=== PATIENT | male | born 1995 ===

== ENCOUNTER 2017-07-24 20:58 | Emergency (ER) | payer SELFPAY ==
[2017-07-24 21:58] LABS: BASO # 0.1 K/uL (0.0-0.2); BASO % 0.5 % (0.0-2.0); EOS # 0.2 K/uL (0.0-0.7); EOS % 2.1 % (0.0-4.0); HEMOGLOBIN 14.3 g/dL (12.0-18.0); LYMPH # 2.5 K/uL (1.0-4.3); LYMPH % 25.4 % (20.0-40.0); MEAN CELL VOLUME 87.5 fl (80.0-94.0); MEAN CORPUSCULAR HEMOGLOBIN 28.8 pg (27.0-31.0); MEAN CORPUSCULAR HGB CONC 32.9 g/dL (33.0-37.0); MEAN PLATELET VOLUME 8.8 fl (7.2-11.7); MONO # 0.7 K/uL (0.0-0.8); MONO % 7.2 % (0.0-10.0); NEUT # 6.3 K/uL (1.8-7.0); NEUT % 64.8 % (50.0-75.0); RBC 4.95 Mil/uL (4.40-5.90); RED CELL DISTRIBUTION WIDTH 13.6 % (11.5-14.5); WHITE BLOOD COUNT 9.8 K/uL (4.8-10.8)
--- NOTE | 2017-07-24 21:58 | ED PDOC ---
HPI: Psych/Substance Abuse Time Seen by Provider: 07/24/17 21:13 Chief Complaint (Nursing): Psychiatric Evaluation Chief Complaint (Provider): Psychiatric Evaluation History Per: Patient History/Exam Limitations: no limitations Additional Complaint(s): 21 yo M, is here for psychiatric evaluation. He said that he was just angry at his family and punched the wall. He is currently homeless and was kicked out of group home. Otherwise: (-) hallucinations, (-) suicidal ideation, (-) homicidal ideation, (-) fever, (-)headache, (-) dyspnea, (-) vomiting. Past Medical History Reviewed: Historical Data, Nursing Documentation, Vital Signs Vital Signs: Last Vital Signs Temp 98.3 F 07/24/17 21:01 Pulse 75 07/24/17 21:01 Resp 16 07/24/17 21:01 BP 132/82 07/24/17 21:01 Pulse Ox 99 07/24/17 21:01 - Family History Family History: States: Unknown Family Hx - Allergies Allergies/Adverse Reactions: Allergies Allergy/AdvReac Type Severity Reaction Status Date / Time No Known Allergies Allergy Verified 07/24/17 21:01 Review of Systems ROS Statement: Except As Marked, All Systems Reviewed And Found Negative (As per HPI,otherwise negative) Psych: Positive for: Other (Psychiatric evalaution). Negative for: Suicidal ideation (or homicidal ideation) Physical Exam - Reviewed Nursing Documentation Reviewed: Yes Vital Signs Reviewed: Yes - Physical Exam Comments: GENERAL APPEARANCE: Patient is awake, alert, oriented x 3, in no acute distress. SKIN: Warm, dry; (-) cyanosis HEAD: (-) scalp swelling, (-) scalp tenderness. EYES: (-) conjunctival pallor, (-) scleral icterus, (-) nystagmus. ENMT: Mucous membranes moist. Airway patent: (-) stridor. NECK: (-) tenderness, (-) stiffness, (-) lymphadenopathy. CHEST AND RESPIRATORY: (-) rales, (-) rhonchi, (-) wheezes; breath sounds equal. ABDOMEN: Soft, (-) distention, (-) tenderness, (-) guarding. EXTREMITIES: (+) tenderness, ecchymosis and edema to the R 3rd MCP, (+) FROM, cap refill normal, distal sensation normal. NEURO AND PSYCH: Mental status as above. Affect: Calm and cooperative. tester semiconductor packages: Intact. Pupils equal and reactive; EOMI; (-) facial asymmetry; tongue and uvula midline. - Laboratory Results Result Diagrams: 07/24/17 21:50 07/24/17 21:50 - ECG O2 Sat by Pulse Oximetry: 99 (RA) Pulse Ox Interpretation: Normal Medical Decision Making Medical Decision Making: Time: 21:25 Initial Impression: Plan: Alcohol serum CMP Drug screen CBC w/ differential 1:1 Observation Urinalysis XR R hand Labs reviewed X-ray right hand: no fracture, no dislocation, as read by GAGANDEEP. Patient is medically cleared for crisis evaluation. Patient is seen and evaluated by crisis. Disposition still pending at this time. Case endorsed to GAGANDEEP Carlson at 0000 pending disposition as per psych. Scribe Attestation: Documented by Emerita Bustillo acting as a scribe for GAGANDEEP Tamez PA-C. Scribe Attestation: All medical record entries made by the Scribe were at my direction and personally dictated by me. I have reviewed the chart and agree that the record accurately reflects my personal performance of the history, physical exam, medical decision making, and the department course for this patient. I have also personally directed, reviewed, and agree with the discharge instructions and disposition. Disposition - Clinical Impression Clinical Impression: Hand contusion, Substance induced mood disorder - Patient ED Disposition Is Patient to be Admitted: Transfer of Care (Case endorsed to GAGANDEEP Carlson 0000 pending dispo from psych) Counseled Patient/Family Regarding: Studies Performed, Diagnosis - Disposition Disposition Time: 00:00 Condition: STABLE Forms: [employer] (Mexican) - PA / CYCLE REPAIRER / Resident Statement MD/DO has reviewed & agrees with the documentation as recorded.
[2017-07-24 22:07] LABS: ALB/GLOB RATIO 1.4 (1.0-2.1); ALBUMIN 4.4 g/dL (3.5-5.0); ALT/SGPT 34 U/L (21-72); AST/SGOT 22 U/L (17-59); BLOOD UREA NITROGEN 19 mg/dl (9-20); CALCIUM 9.6 mg/dL (8.4-10.2); GFR AFRICAN-AMERICAN > 60; GFR NON-AFRICAN AMERICAN > 60
[2017-07-25 00:08] LABS: SQUAMOUS EPITHIAL < 1 /hpf (0-5); URINE BILIRUBIN NEGATIVE (NEGATIVE); URINE BLOOD NEGATIVE (NEGATIVE); URINE CLARITY CLEAR (Clear); URINE COLOR YELLOW (YELLOW); URINE GLUCOSE (UA) NEG (Normal); URINE LEUKOCYTE ESTERASE NEG Leu/uL (Negative); URINE PROTEIN NEGATIVE (NEGATIVE); URINE UROBILINOGEN 0.2-1.0 mg/dL (0.2-1.0)
[2017-07-25 00:28] LABS: BARBITURATES, UR NEGATIVE (NEGATIVE); BENZODIAZEPINES, UR NEGATIVE (NEGATIVE); OPIATES, UR NEGATIVE (NEGATIVE); PHENCYCLIDINE, UR NEGATIVE (NEGATIVE)
[2017-07-25 00:49] VITALS: BP 115/56; PULSE 68; RESP 18; TEMP 98.2; O2SAT 98
--- NOTE | 2017-07-25 01:26 | ED PDOC ---
- Laboratory Results Result Diagrams: 07/24/17 21:50 07/24/17 21:50 - ECG O2 Sat by Pulse Oximetry: 98 - Progress ED Course And Treament: Case endorsed to radio script writer from [facility] pending crisis eval Patient evaluated by fast foods worker; does not meet criteria for admission at this time as per Dr. Mosqueda. Follow up outpatient. Return precautions given Disposition Counseled Patient/Family Regarding: Studies Performed, Diagnosis, Need For Followup - Clinical Impression Clinical Impression: Hand contusion, Adjustment disorder, Personality disorder, unspecified - POA Present On Arrival: None - Disposition Disposition: Routine/Home Disposition Time: 01:25 Condition: STABLE Instructions: Adjustment Disorder, Contusion (DC) Forms: [employer] (Icelandic)
--- NOTE | 2017-07-25 13:43 | RAD ---
PROCEDURE: Right Hand Radiographs. HISTORY: Pain. No history of recent/ related trauma provided COMPARISON: None. FINDINGS: BONES: Normal. No fracture. JOINTS: Normal. No osteoarthritic changes. SOFT TISSUES: Normal. OTHER FINDINGS: None. IMPRESSION: Normal right hand radiographs.
== END 2017-07-25 01:36 | disposition home or self-care (01) ==
LOC: H.ER 20:58
DX: S60.221A Contusion of right hand, initial encounter (principal); W22.8XXA Striking against or struck by other objects, initial encounter; Y92.89 Other specified places as the place of occurrence of the external cause; F43.20 Adjustment disorder, unspecified; F60.9 Personality disorder, unspecified; F19.94 Other psychoactive substance use, unspecified with psychoactive substance-induced mood disorder
CPT/HCPCS: 73130; 80053; 81003; 85025; 99283; G0480

== ENCOUNTER 2017-08-15 01:23 | Emergency (ER) | payer SELFPAY ==
[2017-08-15 01:49] VITALS: BMI 34.0
[2017-08-15 01:52] VITALS: BP 138/91; PULSE 75; RESP 18; TEMP 98.6; O2SAT 98
[2017-08-15 03:42] LABS: BASO # 0.1 K/uL (0.0-0.2); BASO % 0.6 % (0.0-2.0); EOS # 0.4 K/uL (0.0-0.7); EOS % 4.2 % (0.0-4.0); HEMOGLOBIN 13.3 g/dL (12.0-18.0); LYMPH # 2.7 K/uL (1.0-4.3); MEAN CELL VOLUME 86.2 fl (80.0-94.0); MEAN CORPUSCULAR HEMOGLOBIN 29.5 pg (27.0-31.0); MEAN CORPUSCULAR HGB CONC 34.2 g/dL (33.0-37.0); MEAN PLATELET VOLUME 8.3 fl (7.2-11.7); MONO # 0.6 K/uL (0.0-0.8); MONO % 6.8 % (0.0-10.0); NEUT # 5.7 K/uL (1.8-7.0); NEUT % 60.4 % (50.0-75.0); NRBC % 0.2 % (0.0-0.0); RBC 4.52 Mil/uL (4.40-5.90); RED CELL DISTRIBUTION WIDTH 13.5 % (11.5-14.5); WHITE BLOOD COUNT 9.5 K/uL (4.8-10.8)
[2017-08-15 03:50] LABS: BLOOD UREA NITROGEN 20 mg/dl (9-20); CALCIUM 9.1 mg/dL (8.4-10.2); GFR AFRICAN-AMERICAN > 60; GFR NON-AFRICAN AMERICAN > 60
[2017-08-15 04:03] LABS: ACETAMINOPHEN < 10.0 ug/ml (10.0-30.0); SALICYLATE < 1.0 mg/dl
--- NOTE | 2017-08-15 05:49 | ED PDOC ---
HPI: General Adult Time Seen by Provider: 08/15/17 01:45 Chief Complaint (Nursing): Psychiatric Evaluation Chief Complaint (Provider): Evaluation History Per: Patient History/Exam Limitations: no limitations Additional Complaint(s): 21 years old male presents to the ED for general evaluations. Patient is requesting to sleep and rest here in the ED. He offers no medical complaints. PMD: non provided Past Medical History Reviewed: Historical Data, Nursing Documentation, Vital Signs Vital Signs: Last Vital Signs Temp 98.6 F 08/15/17 01:49 Pulse 75 08/15/17 01:49 Resp 18 08/15/17 01:49 BP 138/91 H 08/15/17 01:49 Pulse Ox 98 08/15/17 06:41 - Medical History PMH: No Chronic Diseases Denies: Diabetes, Hepatitis, HIV, HTN, Seizures, Sexually Transmitted Disease - Surgical History Surgical History: No Surg Hx - Family History Family History: States: Unknown Family Hx - Social History Current smoker - smoking cessation education provided: No Alcohol: None Drugs: Denies - Allergies Allergies/Adverse Reactions: Allergies Allergy/AdvReac Type Severity Reaction Status Date / Time No Known Allergies Allergy Verified 07/24/17 21:01 Review of Systems ROS Statement: Except As Marked, All Systems Reviewed And Found Negative Physical Exam - Reviewed Nursing Documentation Reviewed: Yes - Physical Exam Appears: Positive for: Non-toxic, No Acute Distress Head Exam: Positive for: ATRAUMATIC, NORMOCEPHALIC Skin: Positive for: Normal Color, Warm, Dry Eye Exam: Positive for: Normal appearance, EOMI, PERRL ENT: Positive for: Normal ENT Inspection Neck: Positive for: Normal, Painless ROM, Supple Cardiovascular/Chest: Positive for: Regular Rate, Rhythm. Negative for: Murmur Respiratory: Positive for: Normal Breath Sounds. Negative for: Respiratory Distress Gastrointestinal/Abdominal: Positive for: Normal Exam, Soft. Negative for: Tenderness Back: Positive for: Normal Inspection. Negative for: L CVA Tenderness, R CVA Tenderness Extremity: Positive for: Normal ROM. Negative for: Tenderness Neurologic/Psych: Positive for: Other (Somnolent) - Laboratory Results Result Diagrams: 08/15/17 03:30 08/15/17 03:30 - ECG O2 Sat by Pulse Oximetry: 98 (RA) Pulse Ox Interpretation: Normal Medical Decision Making Medical Decision Making: Time: 230 Initial Plan: --EKG --Acetaminophen --Alcohol Serum --BMP --Drug Screen --Salicylate --CBC --Urinalysis 0548 --Crisis evaluation is ordered. pt is more awke and alert, with no focal deficits, no dizziness or signs of trauma. pt vitals stable throughout ER stay. 06 Patient is cleared by crisis evaluation and is diagnosed with homelessness by Dr. Mosqueda, [facility] psychiatrist. Scribe Attestation: Documented by Yola Kaur, acting as a scribe for Deysi Johnson MD. Provider Scribe Attestation: All medical record entries made by the Scribe were at my direction and personally dictated by me. I have reviewed the chart and agree that the record accurately reflects my personal performance of the history, physical exam, medical decision making, and the department course for this patient. I have also personally directed, reviewed, and agree with the discharge instructions and disposition. Disposition - Clinical Impression Clinical Impression: Homelessness - Patient ED Disposition Is Patient to be Admitted: No Counseled Patient/Family Regarding: Studies Performed, Diagnosis, Need For Followup - Disposition Referrals: [facility] [Outside] [facility] [Outside] Disposition: Routine/Home Disposition Time: 04:00 Condition: IMPROVED Additional Instructions: follow up with your primary doctor in 1-2 days return to the ED with any worsening or concerning symptoms Forms: [employer] (Georgian)
--- NOTE | 2017-08-18 12:15 | CARD ---
APPROVED REPORT EKG Measurement Heart [id number] <Conclusion> Sinus rhythm with marked sinus arrhythmia Otherwise normal ECG
== END 2017-08-15 06:52 | disposition home or self-care (01) ==
LOC: H.ER 01:23
DX: Z04.6 Encounter for general psychiatric examination, requested by authority (principal); Z59.0 Homelessness
CPT/HCPCS: 80048; 85025; 93005; 99282; G0480

== ENCOUNTER 2017-08-26 02:33 | Emergency (ER) | payer SELFPAY ==
[2017-08-26 02:38] VITALS: BMI 33.0
--- NOTE | 2017-08-26 04:17 | ED PDOC ---
HPI: Psych/Substance Abuse Time Seen by Provider: 08/26/17 02:38 Chief Complaint (Nursing): Alcohol Ingestion Chief Complaint (Provider): Alcohol Ingestion ED Caveat: Intoxicated History Per: Patient History/Exam Limitations: intoxication Additional Complaint(s): 21 years old male presents to the ED for public intoxication. Patient speaks to himself. PMD: Procedure,Nonphys Past Medical History Reviewed: Historical Data, Nursing Documentation, Vital Signs Vital Signs: Last Vital Signs Temp 98 F 08/26/17 02:37 Pulse 79 08/26/17 02:37 Resp 18 08/26/17 02:37 BP 126/90 08/26/17 02:37 Pulse Ox 98 08/26/17 02:37 - Medical History PMH: Denies: Diabetes, Hepatitis, HIV, HTN, Seizures, Sexually Transmitted Disease - Surgical History Surgical History: No Surg Hx - Family History Family History: States: Unknown Family Hx - Allergies Allergies/Adverse Reactions: Allergies Allergy/AdvReac Type Severity Reaction Status Date / Time No Known Allergies Allergy Verified 07/24/17 21:01 Review of Systems Review Of Systems: ROS cannot be obtained secondary to pt's inabilty to answer questions. Physical Exam - Reviewed Nursing Documentation Reviewed: Yes Vital Signs Reviewed: Yes - Physical Exam Neurologic/Psych: Positive for: Alert, Oriented (x [address]), Other ( appears internally occupied.) - ECG O2 Sat by Pulse Oximetry: 98 (RA) Pulse Ox Interpretation: Normal Medical Decision Making Medical Decision Making: Time: 030 Initial Impression: 21 years old intoxicated male. Initial Plan: --Alcohol Serum --Urine Drug Screen Provider suspects elicit substance abuse. Time: 616 Patient is sober, awake, alert, oriented x3 and has fluent speech. Patient is stable for discharge. Scribe Attestation: Documented by Yola Kaur, acting as a scribe for Garrett Rea MD. Provider Scribe Attestation: All medical record entries made by the Scribe were at my direction and personally dictated by me. I have reviewed the chart and agree that the record accurately reflects my personal performance of the history, physical exam, medical decision making, and the department course for this patient. I have also personally directed, reviewed, and agree with the discharge instructions and disposition. Disposition - Clinical Impression Clinical Impression: Alcohol intoxication - Disposition Disposition: Routine/Home Disposition Time: 06:17 Condition: STABLE Instructions: Alcohol Use - When Is Drinking a Problem? Forms: [employer] (Wolof)
[2017-08-26 06:32] VITALS: BP 124/79; PULSE 77; RESP 16; TEMP 97.9; O2SAT 97
== END 2017-08-26 06:32 | disposition home or self-care (01) ==
LOC: H.ER 02:33
DX: F10.129 Alcohol abuse with intoxication, unspecified (principal)
CPT/HCPCS: 99282; G0480

== ENCOUNTER 2017-08-30 00:52 | Emergency (ER) | payer SELFPAY ==
[2017-08-30 00:52] VITALS: BMI 33.0
[2017-08-30 02:33] VITALS: BP 114/75; PULSE 89; RESP 16; TEMP 98.1; O2SAT 100
--- NOTE | 2017-08-30 02:37 | ED PDOC ---
HPI: General Adult Time Seen by Provider: 08/30/17 02:15 Chief Complaint (Nursing): Medical Clearance Chief Complaint (Provider): none History Per: Patient History/Exam Limitations: no limitations Additional Complaint(s): 21 y/o male presents to ED for eval. Patient states he is tired because he is homeless and doesn't get much sleep. Patient states he was sleeping in waiting room until asked to leave by security so he decided to sign up for a "check up". Patient denies acute medical or psychiatric complaints. Past Medical History Reviewed: Historical Data, Nursing Documentation, Vital Signs Vital Signs: Last Vital Signs Temp 98.1 F 08/30/17 02:29 Pulse 89 08/30/17 02:29 Resp 16 08/30/17 02:29 BP 114/75 08/30/17 02:29 Pulse Ox 100 08/30/17 02:29 - Medical History PMH: No Chronic Diseases Denies: Diabetes, Hepatitis, HIV, HTN, Seizures, Sexually Transmitted Disease - Surgical History Surgical History: No Surg Hx - Family History Family History: States: Unknown Family Hx - Allergies Allergies/Adverse Reactions: Allergies Allergy/AdvReac Type Severity Reaction Status Date / Time No Known Allergies Allergy Verified 07/24/17 21:01 Review of Systems ROS Statement: Except As Marked, All Systems Reviewed And Found Negative Physical Exam - Reviewed Nursing Documentation Reviewed: Yes Vital Signs Reviewed: Yes - Physical Exam Appears: Positive for: Well, Non-toxic, No Acute Distress (sleeping in chair) Head Exam: Positive for: ATRAUMATIC, NORMAL INSPECTION, NORMOCEPHALIC Skin: Positive for: Normal Color Eye Exam: Positive for: Normal appearance ENT: Positive for: Normal ENT Inspection Cardiovascular/Chest: Positive for: Regular Rate, Rhythm Respiratory: Positive for: Normal Breath Sounds Gastrointestinal/Abdominal: Positive for: Normal Exam Back: Positive for: Normal Inspection Extremity: Positive for: Normal ROM Neurologic/Psych: Positive for: Alert, Oriented - ECG O2 Sat by Pulse Oximetry: 100 - Progress ED Course And Treament: Patient requires no further intervention in ED and is stable for discharge Disposition - Clinical Impression Clinical Impression: Normal exam - Patient ED Disposition Is Patient to be Admitted: No Counseled Patient/Family Regarding: Diagnosis, Need For Followup - Disposition Referrals: [facility] [Outside] Disposition: Routine/Home Disposition Time: 02:37 Condition: GOOD
== END 2017-08-30 02:45 | disposition home or self-care (01) ==
LOC: H.ER 00:52
DX: Z59.0 Homelessness (principal)

== ENCOUNTER 2017-08-31 02:26 | Emergency (ER) | payer SELFPAY ==
[2017-08-31 02:27] VITALS: BMI 33.0
[2017-08-31 02:53] VITALS: BP 116/72; PULSE 68; RESP 16; TEMP 97.5; O2SAT 97
--- NOTE | 2017-08-31 04:49 | ED PDOC ---
HPI: Psych/Substance Abuse Time Seen by Provider: 08/31/17 02:57 Chief Complaint (Nursing): Psychiatric Evaluation Chief Complaint (Provider): Psychiatric evaluation History Per: Patient Associated Symptoms: denies: Suicidal Thoughts, Suicidal Plan Additional Complaint(s): 21yo male, well known to ER for multiple visits with similar presentation, comes today for a psychiatric evaluation. Upon provider interview, patient noted to be rambling and unable/unwilling to provide a coherent HPI. Per triage note, patient reported homicidal ideation but denies suicidal ideation. PMD: None Past Medical History Reviewed: Historical Data, Nursing Documentation, Vital Signs Vital Signs: Last Vital Signs Temp 97.5 F L 08/31/17 02:50 Pulse 68 08/31/17 02:50 Resp 16 08/31/17 02:50 BP 116/72 08/31/17 02:50 Pulse Ox 97 08/31/17 02:50 - Medical History PMH: Denies: Diabetes, Hepatitis, HIV, HTN, Seizures, Sexually Transmitted Disease - Surgical History Surgical History: No Surg Hx - Family History Family History: States: Unknown Family Hx - Allergies Allergies/Adverse Reactions: Allergies Allergy/AdvReac Type Severity Reaction Status Date / Time No Known Allergies Allergy Verified 07/24/17 21:01 Review of Systems ROS Statement: Except As Marked, All Systems Reviewed And Found Negative Constitutional: Negative for: Fever, Chills Cardiovascular: Negative for: Chest Pain Respiratory: Negative for: Shortness of Breath Gastrointestinal: Negative for: Abdominal Pain Psych: Negative for: Suicidal ideation Physical Exam - Reviewed Nursing Documentation Reviewed: Yes Vital Signs Reviewed: Yes - Physical Exam Appears: Positive for: No Acute Distress Head Exam: Positive for: ATRAUMATIC, NORMAL INSPECTION, NORMOCEPHALIC Skin: Positive for: Normal Color Eye Exam: Positive for: Normal appearance Neck: Positive for: Supple Cardiovascular/Chest: Positive for: Regular Rate, Rhythm Respiratory: Positive for: Normal Breath Sounds Gastrointestinal/Abdominal: Positive for: Soft. Negative for: Tenderness Extremity: Positive for: Normal ROM. Negative for: Deformity Neurologic/Psych: Positive for: Alert - ECG O2 Sat by Pulse Oximetry: 97 (RA) Pulse Ox Interpretation: Normal Medical Decision Making Medical Decision Making: Impression: Psychiatric evaluation Plan: -- UDS -- Crisis evaluation Time: 352 Patient has become verbally aggressive and is high risk for elopement; patient placed in 4 point restraints. 1:1 observation started Time: 403 foster care social worker evaluated patient and states patient admits that he was acting in order to secure a bed in this ER. Time: 411 Patient is increasingly more aggressive, making terrorist threats to multiple staff members. [place] police called and patient escorted out of the facility. Scribe Attestation: Documented by Cata Rodriguez, acting as a scribe for Garrett Rea MD Provider Scribe Attestation: All medical record entries made by the Scribe were at my direction and personally dictated by me. I have reviewed the chart and agree that the record accurately reflects my personal performance of the history, physical exam, medical decision making, and the department course for this patient. I have also personally directed, reviewed, and agree with the discharge instructions and disposition. Disposition - Clinical Impression Clinical Impression: Adjustment disorder - Disposition Disposition: Routine/Home Disposition Time: 04:12 Condition: STABLE Instructions: Adjustment Disorder Forms: [employer] (Vietnamese)
== END 2017-08-31 04:31 | disposition home or self-care (01) ==
LOC: H.ER 02:26
DX: F43.20 Adjustment disorder, unspecified (principal)

== ENCOUNTER 2018-03-02 23:36 | Emergency (ER) | payer MEDICAID ==
[2018-03-02 23:37] VITALS: BMI 33.0
[2018-03-02 23:52] VITALS: RESP 18; TEMP 98.3
--- NOTE | 2018-03-03 01:57 | ED PDOC ---
HPI: Headache Time Seen by Provider: 03/02/18 23:57 Chief Complaint (Nursing): Headache Chief Complaint (Provider): Headache History Per: Patient History/Exam Limitations: no limitations Pain Scale Rating Of: 2 Associated Symptoms: Other (Nasal congestion and runny nose) Additional Complaint(s): 22 years old homeless male presents to ER for evaluation of nasal congestion, runny nose and frontal headache. Patient reports headache is 2 out of 10 right now. He denies fevers, neck stiffness, chills or taking medications [employer]. PMD: non provided Past Medical History Reviewed: Historical Data, Nursing Documentation, Vital Signs Vital Signs: Last Vital Signs Temp 98.3 F 03/02/18 23:50 Pulse 67 03/02/18 23:50 Resp 18 03/02/18 23:50 BP 118/57 L 03/02/18 23:50 Pulse Ox 100 03/02/18 23:50 - Medical History PMH: No Chronic Diseases Denies: Diabetes, Hepatitis, HIV, HTN, Seizures, Sexually Transmitted Disease - Surgical History Surgical History: No Surg Hx - Family History Family History: States: Unknown Family Hx - Home Medications Home Medications: Ambulatory Orders Medication Instructions Recorded Ibuprofen [Motrin Tab] 600 mg PO Q6 #30 tab 03/03/18 - Allergies Allergies/Adverse Reactions: Allergies Allergy/AdvReac Type Severity Reaction Status Date / Time No Known Allergies Allergy Verified 03/02/18 23:50 Review of Systems ROS Statement: Except As Marked, All Systems Reviewed And Found Negative Constitutional: Negative for: Fever, Chills ENT: Positive for: Nose Discharge, Nose Congestion Neurological: Positive for: Headache (Frontal) Physical Exam - Reviewed Nursing Documentation Reviewed: Yes Vital Signs Reviewed: Yes - Physical Exam Appears: Positive for: Non-toxic, No Acute Distress (disheveled) Head Exam: Positive for: ATRAUMATIC, NORMOCEPHALIC Skin: Positive for: Normal Color, Warm, Dry Eye Exam: Positive for: Normal appearance, EOMI, PERRL Neck: Positive for: Normal, Painless ROM, Supple Cardiovascular/Chest: Positive for: Regular Rate, Rhythm. Negative for: Murmur Respiratory: Positive for: Normal Breath Sounds. Negative for: Wheezing Gastrointestinal/Abdominal: Positive for: Normal Exam, Soft. Negative for: Tenderness Back: Positive for: Normal Inspection. Negative for: L CVA Tenderness, R CVA Tenderness Extremity: Positive for: Normal ROM. Negative for: Pedal Edema, Deformity Neurologic/Psych: Positive for: Alert, Oriented (x3) - ECG O2 Sat by Pulse Oximetry: 100 (RA) Pulse Ox Interpretation: Normal Medical Decision Making Medical Decision Making: Time: 28 A/P: 22 years old male with URI and mild headache 4AM --PAtient has been watching [employer] videos and sleeping --No further ED intervention necessary --Well appearing with stable vitals upon discharge ----- Scribe Attestation: Documented by Yola Kaur, acting as a scribe for Rome Petersen MD. Provider Scribe Attestation: All medical record entries made by the Scribe were at my direction and personally dictated by me. I have reviewed the chart and agree that the record accurately reflects my personal performance of the history, physical exam, medical decision making, and the department course for this patient. I have also personally directed, reviewed, and agree with the discharge instructions and disposition. Disposition - Clinical Impression Clinical Impression: Headache - Patient ED Disposition Is Patient to be Admitted: No - Disposition Referrals: [facility] [Outside] Disposition: Routine/Home Disposition Time: 04:10 Condition: STABLE Prescriptions: Ibuprofen [Motrin Tab] 600 mg PO Q6 #30 tab Instructions: Headache, Adult Forms: [employer] (Setswana)
[2018-03-03 05:16] VITALS: BP 106/56; PULSE 70; O2SAT 96
== END 2018-03-03 05:20 | disposition home or self-care (01) ==
LOC: H.ER 23:36
DX: R51 Headache (principal); R09.81 Nasal congestion

== ENCOUNTER 2018-03-04 02:02 | Emergency (ER) | payer MEDICAID ==
[2018-03-04 02:02] VITALS: BMI 33.0
[2018-03-04 02:09] VITALS: BP 129/56; PULSE 67; RESP 15; TEMP 98.2; O2SAT 97
--- NOTE | 2018-03-04 03:01 | ED PDOC ---
HPI: Male Pain Time Seen by Provider: 03/04/18 02:05 Chief Complaint (Nursing): Lower Extremity Problem/Injury Chief Complaint (Provider): STD Check History Per: Patient History/Exam Limitations: no limitations Additional Complaint(s): 22 year old homeless male presents to the ED requesting to be checked for STDs in light of two new sexual partners, despite being asymptomatic. Denies penile discharge, rash, and fever. Additionally, he states his foot was hurting earlier secondary to a fall but notes it is no longer hurting. PMD: none provided Past Medical History Reviewed: Historical Data, Nursing Documentation, Vital Signs Vital Signs: Last Vital Signs Temp 98.2 F 03/04/18 02:05 Pulse 67 03/04/18 02:05 Resp 15 03/04/18 02:05 BP 129/56 L 03/04/18 02:05 Pulse Ox 97 03/04/18 02:05 - Medical History PMH: No Chronic Diseases Denies: Diabetes, Hepatitis, HIV, HTN, Seizures, Sexually Transmitted Disease - Surgical History Surgical History: No Surg Hx - Family History Family History: States: Unknown Family Hx - Home Medications Home Medications: Ambulatory Orders Medication Instructions Recorded Ibuprofen [Motrin Tab] 600 mg PO Q6 #30 tab 03/03/18 - Allergies Allergies/Adverse Reactions: Allergies Allergy/AdvReac Type Severity Reaction Status Date / Time No Known Allergies Allergy Verified 03/04/18 02:09 Review of Systems ROS Statement: Except As Marked, All Systems Reviewed And Found Negative Constitutional: Negative for: Fever Genitourinary Male: Negative for: Penile Discharge, Rash Physical Exam - Reviewed Nursing Documentation Reviewed: Yes Vital Signs Reviewed: Yes - Physical Exam Appears: Positive for: No Acute Distress Head Exam: Positive for: ATRAUMATIC, NORMOCEPHALIC Skin: Positive for: Normal Color. Negative for: Rash Eye Exam: Positive for: Normal appearance, EOMI, PERRL ENT: Positive for: Normal ENT Inspection Neck: Positive for: Normal, Painless ROM, Supple Cardiovascular/Chest: Positive for: Regular Rate, Rhythm Respiratory: Positive for: Normal Breath Sounds. Negative for: Respiratory Distress Gastrointestinal/Abdominal: Positive for: Normal Exam, Soft. Negative for: Tenderness Back: Positive for: Normal Inspection Extremity: Positive for: Normal ROM Neurologic/Psych: Positive for: Alert, Oriented (x3) - ECG O2 Sat by Pulse Oximetry: 97 (RA) Pulse Ox Interpretation: Normal Medical Decision Making Medical Decision Making: A/P: 22 year old homeless male presenting for STD check Time: 222 Initial Plan: --Chlamydia/GC RNA, TMA --Rapid HIV --Rapid Plasma Reagin 0435 Patient informed HIV test came back negative, and he will be contacted once the other tests result. Patient stable for discharge. Scribe Attestation: Documented by Maria Elena Clifford acting as a scribe for Rome Petersen MD. Provider Scribe Attestation: All medical record entries made by the Scribe were at my direction and personally dictated by me. I have reviewed the chart and agree that the record accurately reflects my personal performance of the history, physical exam, medical decision making, and the department course for this patient. I have also personally directed, reviewed, and agree with the discharge instructions and disposition. Disposition - Clinical Impression Clinical Impression: Screening for STD (sexually transmitted disease) - Patient ED Disposition Is Patient to be Admitted: No Counseled Patient/Family Regarding: Studies Performed - Disposition Referrals: [facility] [Outside] Disposition: Routine/Home Disposition Time: 04:37 Condition: STABLE Instructions: Screening for Sexually Transmitted Infections Forms: [employer] (Tanzanian)
== END 2018-03-04 05:27 | disposition home or self-care (01) ==
LOC: H.ER 02:02
DX: Z11.3 Encounter for screening for infections with a predominantly sexual mode of transmission (principal); Z59.0 Homelessness

== ENCOUNTER 2018-03-04 22:45 | Emergency (ER) | payer MEDICAID ==
[2018-03-04 22:45] VITALS: BMI 33.0
[2018-03-04 23:02] VITALS: BP 124/74; PULSE 68; RESP 18; TEMP 98.8; O2SAT 99
--- NOTE | 2018-03-04 23:56 | ED PDOC ---
HPI: Headache Time Seen by Provider: 03/04/18 22:47 Chief Complaint (Nursing): Headache Chief Complaint (Provider): Headache History Per: Patient Onset/Duration Of Symptoms: Hrs Current Symptoms Are (Timing): Still Present Additional Complaint(s): 22 yo male presents for evaluation of headache. PT states it is his hold head. Pt denies N/V. 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 Pt denies fever/chills. Pt sleeping comfortable on my arrival to room and appears agitated when I turn the lights on for evaluation. Past Medical History Reviewed: Historical Data, Nursing Documentation, Vital Signs Vital Signs: Last Vital Signs Temp 98.8 F 03/04/18 22:59 Pulse 68 03/04/18 22:59 Resp 18 03/04/18 22:59 BP 124/74 03/04/18 22:59 Pulse Ox 99 03/04/18 22:59 - Medical History PMH: No Chronic Diseases Denies: Diabetes, Hepatitis, HIV, HTN, Seizures, Sexually Transmitted Disease - Surgical History Surgical History: No Surg Hx - Family History Family History: States: Unknown Family Hx - Living Arrangements Living Arrangements: With Family - Social History Current smoker - smoking cessation education provided: No - Home Medications Home Medications: Ambulatory Orders Medication Instructions Recorded Ibuprofen [Motrin Tab] 600 mg PO Q6 #30 tab 03/03/18 - Allergies Allergies/Adverse Reactions: Allergies Allergy/AdvReac Type Severity Reaction Status Date / Time No Known Allergies Allergy Verified 03/04/18 02:09 Review of Systems ROS Statement: Except As Marked, All Systems Reviewed And Found Negative Constitutional: Negative for: Fever, Chills Gastrointestinal: Negative for: Nausea, Vomiting, Abdominal Pain, Diarrhea Genitourinary Male: Negative for: Dysuria, Frequency Skin: Negative for: Rash Neurological: Positive for: Headache. Negative for: Weakness, Numbness Physical Exam - Reviewed Nursing Documentation Reviewed: Yes Vital Signs Reviewed: Yes - Physical Exam Appears: Positive for: Well, Non-toxic, No Acute Distress Head Exam: Positive for: ATRAUMATIC, NORMAL INSPECTION, NORMOCEPHALIC Skin: Positive for: Normal Color, Warm, DRY Eye Exam: Positive for: Normal appearance ENT: Positive for: Normal ENT Inspection Neck: Positive for: Normal, Painless ROM Cardiovascular/Chest: Positive for: Regular Rate, Rhythm Respiratory: Positive for: Normal Breath Sounds. Negative for: Accessory Muscle Use, Respiratory Distress Back: Positive for: Normal Inspection Extremity: Positive for: Normal ROM Neurologic/Psych: Positive for: Alert, Oriented - ECG O2 Sat by Pulse Oximetry: 99 Medical Decision Making Medical Decision Making: Tylenol PO in ER Disposition - Clinical Impression Clinical Impression: Homelessness, Headache - Patient ED Disposition Is Patient to be Admitted: No Counseled Patient/Family Regarding: Diagnosis, Need For Followup - Disposition Disposition: Routine/Home Disposition Time: 23:47 Condition: GOOD Instructions: Headache, Adult (DC)
== END 2018-03-05 00:30 | disposition home or self-care (01) ==
LOC: H.ER 22:45
DX: R51 Headache (principal); Z59.0 Homelessness

== ENCOUNTER 2018-03-05 23:25 | Emergency (ER) | payer MEDICAID ==
[2018-03-05 23:25] VITALS: BMI 33.0
[2018-03-05 23:53] VITALS: PULSE 66; RESP 18; TEMP 98.4; O2SAT 99
--- NOTE | 2018-03-06 00:22 | ED PDOC ---
HPI: Headache Time Seen by Provider: 03/05/18 23:58 Chief Complaint (Nursing): Headache Chief Complaint (Provider): AQUINO History Per: Patient History/Exam Limitations: no limitations Onset/Duration Of Symptoms: Days Current Symptoms Are (Timing): Still Present Preceeding Symptoms: denies: Visual Disturbances Associated Symptoms: denies: Photophobia, Blurred Vision, Nausea, Vomiting, Extremity Weakness Additional Complaint(s): 22 yo homeless male with no PMH who presents for evaluation of headache. Pt was seen here in ED yesterday for the same complaint. States that it gets better with Tylenol but it recurs and he has no money to buy Tylenol until Mar 10. Denies dizziness, visual disturbance, gait disturbance, weakness. Past Medical History Reviewed: Historical Data, Nursing Documentation, Vital Signs Vital Signs: Last Vital Signs Temp 98.4 F 03/05/18 23:50 Pulse 66 03/05/18 23:50 Resp 18 03/05/18 23:50 BP Pulse Ox 99 03/05/18 23:50 - Medical History PMH: Denies: Diabetes, Hepatitis, HIV, HTN, Seizures, Sexually Transmitted Disease - Family History Family History: States: Unknown Family Hx - Living Arrangements Living Arrangements: Other (homeless) - Social History Current smoker - smoking cessation education provided: Yes (cigarettes) Alcohol: None Drugs: Denies - Home Medications Home Medications: Ambulatory Orders Medication Instructions Recorded Ibuprofen [Motrin Tab] 600 mg PO Q6 #30 tab 03/03/18 - Allergies Allergies/Adverse Reactions: Allergies Allergy/AdvReac Type Severity Reaction Status Date / Time No Known Allergies Allergy Verified 03/04/18 02:09 Review of Systems ROS Statement: Except As Marked, All Systems Reviewed And Found Negative Constitutional: Negative for: Fever, Chills Physical Exam - Reviewed Nursing Documentation Reviewed: Yes Vital Signs Reviewed: Yes - Physical Exam Appears: Positive for: Well Head Exam: Positive for: ATRAUMATIC Skin: Positive for: Normal Color Eye Exam: Positive for: Normal appearance, EOMI, PERRL, Conjunctival injection ENT: Positive for: Normal ENT Inspection Neck: Positive for: Supple Cardiovascular/Chest: Positive for: Regular Rate, Rhythm Respiratory: Positive for: Normal Breath Sounds Neurologic/Psych: Positive for: Alert, Oriented, Other (proprioception intact (able to touch nose with alternating hands), strength = in B/L upper extremities, smile symmetrical. ). Negative for: Aphasia, Facial Droop - ECG O2 Sat by Pulse Oximetry: 99 Medical Decision Making Medical Decision Making: Tylenol Disposition - Clinical Impression Clinical Impression: Chronic headache disorder - Patient ED Disposition Is Patient to be Admitted: No Counseled Patient/Family Regarding: Need For Followup, Rx Given - Disposition Referrals: [facility] [Outside] Disposition: Routine/Home Disposition Time: 01:35 Condition: STABLE Additional Instructions: Take Tylenol as needed for pain. Return to ED if you start to have dizziness, worsening AQUINO, visual changes. Instructions: Headache, Adult (DC) Forms: [employer] (Bahamian) Print Language: CHINESE
== END 2018-03-06 01:35 | disposition home or self-care (01) ==
LOC: H.ER 23:25
DX: R51 Headache (principal); G89.29 Other chronic pain; F17.210 Nicotine dependence, cigarettes, uncomplicated

== ENCOUNTER 2018-03-07 01:15 | Emergency (ER) | payer MEDICAID ==
[2018-03-07 01:32] VITALS: BMI 28.8
[2018-03-07 01:36] VITALS: TEMP 98.9
--- NOTE | 2018-03-07 03:31 | ED PDOC ---
HPI: Headache Time Seen by Provider: 03/07/18 02:22 Chief Complaint (Nursing): Headache Chief Complaint (Provider): " I don't know" History Per: Patient History/Exam Limitations: no limitations Additional Complaint(s): 22 y/o Homeless Male who presents with c/o AQUINO. Patient seen here in ED on 03/04 and 03/05 for the same complaint. Patient sleeping comfortably when seen by provider stating "it's cold outside and I wanted to take a nap". Denies any other complaints including AQUINO. Past Medical History Reviewed: Historical Data, Nursing Documentation, Vital Signs Vital Signs: Last Vital Signs Temp 98.9 F 03/07/18 01:32 Pulse 56 L 03/07/18 01:32 Resp 18 03/07/18 01:32 BP 118/62 03/07/18 01:32 Pulse Ox 100 03/07/18 01:32 - Medical History PMH: Denies: Diabetes, Hepatitis, HIV, HTN, Seizures, Sexually Transmitted Disease - Family History Family History: States: Unknown Family Hx - Home Medications Home Medications: Ambulatory Orders Medication Instructions Recorded Ibuprofen [Motrin Tab] 600 mg PO Q6 #30 tab 03/03/18 - Allergies Allergies/Adverse Reactions: Allergies Allergy/AdvReac Type Severity Reaction Status Date / Time No Known Allergies Allergy Verified 03/04/18 02:09 Review of Systems ROS Statement: Except As Marked, All Systems Reviewed And Found Negative Physical Exam - Reviewed Nursing Documentation Reviewed: Yes Vital Signs Reviewed: Yes - Physical Exam Appears: Positive for: No Acute Distress Skin: Positive for: Normal Color Eye Exam: Positive for: Conjunctival injection (B/L) - ECG O2 Sat by Pulse Oximetry: 100 Medical Decision Making Medical Decision Making: Malingering Disposition - Clinical Impression Clinical Impression: Malingering - Patient ED Disposition Is Patient to be Admitted: No - [facility] Disposition: Routine/Home Disposition Time: 03:31 Condition: STABLE
[2018-03-07 05:47] VITALS: BP 117/72; PULSE 64; RESP 17; O2SAT 99
== END 2018-03-07 05:15 | disposition home or self-care (01) ==
LOC: H.ER 01:15
DX: Z76.5 Malingerer [conscious simulation] (principal); Z59.0 Homelessness

== ENCOUNTER 2018-03-07 23:35 | Emergency (ER) | payer MEDICAID ==
[2018-03-07 23:36] VITALS: BMI 28.8
[2018-03-07 23:48] VITALS: RESP 18
--- NOTE | 2018-03-08 00:59 | ED PDOC ---
Lower Extremity Pain/Injury Time Seen by Provider: 03/08/18 00:14 Chief Complaint (Nursing): Lower Extremity Problem/Injury History Per: Patient Additional Complaint(s): Pt. states yesterday afternoon he was in the gym performing leg extensions and afterwards he felt mild pain in the R knee which became worse as the day progressed. Denies blunt trauma, numbness, tingling, calf pain, previous knee injuries. Past Medical History Reviewed: Historical Data, Nursing Documentation, Vital Signs Vital Signs: Last Vital Signs Temp 98.6 F 03/07/18 23:45 Pulse 74 03/07/18 23:45 Resp 18 03/07/18 23:45 BP 111/72 03/07/18 23:45 Pulse Ox 96 03/07/18 23:45 - Medical History PMH: Denies: Diabetes, Hepatitis, HIV, HTN, Seizures, Sexually Transmitted Disease - Family History Family History: States: No Known Family Hx - Home Medications Home Medications: Ambulatory Orders Medication Instructions Recorded Ibuprofen [Motrin Tab] 600 mg PO Q6 #30 tab 03/03/18 - Allergies Allergies/Adverse Reactions: Allergies Allergy/AdvReac Type Severity Reaction Status Date / Time No Known Allergies Allergy Verified 03/04/18 02:09 Review of Systems ROS Statement: Except As Marked, All Systems Reviewed And Found Negative Physical Exam - Physical Exam Appears: Positive for: Well, Non-toxic, No Acute Distress Skin: Positive for: Normal Color, Warm. Negative for: Rash Eye Exam: Positive for: Normal appearance Pulses-Dorsalis Pedis (L): 2+ Pulses-Dorsalis Pedis (R): 2+ Extremity: Positive for: Normal ROM (FROM actively of R knee), Other (R knee without tenderness, swelling, deformity, laxity, warmth, erythema; R knee negative anterior draw sign; b/l lower extremity strength 5/5). Negative for: Calf Tenderness (b/l) Neurologic/Psych: Positive for: Alert, Oriented (x3), Gait (steady, unassisted) - ECG O2 Sat by Pulse Oximetry: 96 - Radiology X-Ray: Interpreted by Me (R knee x-ray) X-Ray Interpretation: No Acute Disease - Progress ED Course And Treament: Tylenol 975mg PO ordered. R knee immobilized in immobilizer by radiography technician. Crutches and crutch walking instructions provided. Advised to f/u with Dr. Cardona or orthopedist for further evaluation. Disposition - Clinical Impression Clinical Impression: Knee injury - Patient ED Disposition Is Patient to be Admitted: No - Disposition Referrals: Be Cardona III, MD [Staff Provider] - [facility] [Outside] Disposition: Routine/Home Disposition Time: 01:04 Condition: STABLE Additional Instructions: FOLLOW UP WITH ORTHOPEDIST FOR FURTHER EVALUATION RETURN TO ED IMMEDIATELY IF SYMPTOMS WORSEN VIV KHAN, thank you for letting us take care of you today. Your provider was Garrett Rea MD and you were treated for LEG PAIN. The emergency medical care you received today was directed at your acute symptoms. If you were prescribed any medication, please fill it and take as directed. It may take several days for your symptoms to resolve. Return to the Emergency Department if your symptoms worsen, do not improve, or if you have any other problems. Please contact your doctor or call one of the physicians/clinics you have been referred to that are listed on the Patient Visit Information form that is included in your discharge packet. Bring any paperwork you were given at discharge with you along with any medications you are taking to your follow up visit. Our treatment cannot replace ongoing medical care by a primary care provider outside of the emergency department. Thank you for allowing the [facility] [employer] team to be part of your care today. If you had an X-Ray or CT scan: A Radiologist will review the ED reading if any change in treatment is needed we will contact you. If you had a blood, urine, or wound culture: It will take several days for the results, if any change in treatment is needed we will contact you. If you had an STI test: It will take 48 hours for the results. Please call after 1 week if you have not heard back. Instructions: Knee Sprain (DC)
[2018-03-08 04:29] VITALS: BP 121/74; PULSE 65; TEMP 98; O2SAT 99
--- NOTE | 2018-03-08 13:13 | RAD ---
Date of service: 03/08/2018 PROCEDURE: Right Knee Radiographs. HISTORY: pain COMPARISON: None. FINDINGS: BONES: Normal. No fracture. JOINTS: Normal. No osteoarthritis. JOINT EFFUSION: None. OTHER FINDINGS: None. IMPRESSION: Normal radiographs of the right knee.
== END 2018-03-08 03:15 | disposition home or self-care (01) ==
LOC: H.ER 23:35
DX: S83.91XA Sprain of unspecified site of right knee, initial encounter (principal); X50.9XXA Other and unspecified overexertion or strenuous movements or postures, initial encounter; Y92.89 Other specified places as the place of occurrence of the external cause